=== PATIENT | male | born 1950 | race American Indian/Alaskan Native ===

== ENCOUNTER 2018-05-04 09:49 | Day surgery (SDC) | payer MEDICARE ==
[~2018-05-04 09:49] MED LIST: DILAUDID IV PRN; LACTATED RINGERS 1,000 ML IV SCH; VERSED IV NR; ZOFRAN IV PRN
[2018-05-04] MEDS ORDERED: ANCEF/STERILE WATER 2 GM/20 ML IV NR (11:00)
[2018-05-04] MEDS ORDERED: ROBINUL ONE (11:16)
[2018-05-04] MEDS ORDERED: ZOFRAN ONE ×2 (11:16→12:23)
[2018-05-04] MEDS ORDERED: DECADRON ONE (11:16)
[2018-05-04] MEDS ORDERED: DIPRIVAN 10 MG/ML IV ONE (11:16)
[2018-05-04] MEDS ORDERED: SUBLIMAZE ONE (11:16)
--- NOTE | 2018-05-04 12:28 | Post Operative Note ---
Date of procedure: 05/04/18 Pre-op diagnosis: renal stone Post-op diagnosis: same Findings: large stone Procedure: left renal litho eswl Anesthesia: GETA Surgeon: EDUARDO FERRARI Estimated blood loss: none Condition: stable Disposition: PACU
--- NOTE | 2018-05-04 12:30 | Discharge Summary ---
Short Stay Discharge Plan Activity: other (no straining ) Weight Bearing Status: Full Weight Bearing Diet: low fat, low cholesterol, low salt Special Instructions: other Follow up with: NISHA VANN MD [Primary Care Provider] - 7 Days EDUARDO FERRARI MD [Staff Physician] - 7 Days
--- NOTE | 2018-05-04 12:32 | Anesthesia Day of Surgery ---
Anesthesia Day of Surgery - Day of Surgery Patient Examined: Yes Patient H&P Reviewed: Yes Patient is NPO: Yes
--- NOTE | 2018-05-04 12:33 | Anesthesia Consultation ---
Anesthesia Consult and Med Hx Date of service: 05/04/18 - Airway Anesthetic Teeth Evaluation: Poor ROM Head & Neck: Adequate Mental/Hyoid Distance: Adequate Mallampati Class: Class III Intubation Access Assessment: Possibly Difficult - Pulmonary Exam CTA: Yes - Cardiac Exam Cardiac Exam: RRR - Pre-Operative Health Status ASA Pre-Surgery Classification: ASA3 Proposed Anesthetic Plan: General - Pulmonary Hx Smoking: Yes (STOPPED LATE TEENAGER) Hx Sleep Apnea: No (DEO PRE SCREEN HIGH RISK.) - Cardiovascular System Hx Hypertension: Yes (X 20 YRS) - Central Nervous System Hx Seizures: Yes (NO SEIZURES X 1 YR , OFF MEDS X 6 MONTHS) Hx Psychiatric Problems: No - Gastrointestinal Hx Ulcer: Yes - Hematic Hx Anemia: Yes - Other Systems Hx Cancer: No
--- NOTE | 2018-05-04 12:40 | Operative Report ---
PREOPERATIVE DIAGNOSIS: Large left renal stones, left flank pain POSTOPERATIVE DIAGNOSES: Large left renal stones, left flank pain. PROCEDURE: In situ lithotripsy. SURGEON: Akin Fall MD ANESTHESIA: General. FINDINGS: This is a gentleman with about a 1.5 cm renal pelvic stone, now presents for lithotripsy. All risks and implications discussed. He may require followup percutaneous cystoscopic procedures. DESCRIPTION OF PROCEDURE: The patient brought to the operating room and placed on the operating table. Following induction of anesthesia, placed on the table and the stone was well visualized. At this point, shocks were begun at 1 kV. Renal pause was carried out and shocks increased to 8 kV. A total of 2500 shocks were given. The patient tolerated the procedure well. No significant complication. The density of the stone decreased significantly. He may require stenting or percutaneous nephrostomy. He was brought to recovery in stable condition. JOB# [id number] [facility]
[2018-05-04] MEDS ORDERED: PERCOCET 5/325 PO PRN (13:10)
[2018-05-04 13:36] VITALS: BP 151/83
--- NOTE | 2018-05-04 16:05 | Post Anesthesia Evaluation ---
- Post Anesthesia Evaluation Patient Participated: Yes Airway Patent: Yes Stable Respiratory Function: Yes Nausea/Vomiting: No Temp > 96.8F: Yes Pain Manageable: Yes Adequeate Hydration: Yes Anesthesia Complications: No
== END 2018-05-04 14:20 | disposition home or self-care (01) ==
LOC: OR 09:49
PROVIDERS: ATTEND Urology
DX: N20.0 Calculus of kidney (principal); E78.00 Pure hypercholesterolemia, unspecified; I10 Essential (primary) hypertension; K21.9 Gastro-esophageal reflux disease without esophagitis; Z98.890 Other specified postprocedural states; Z80.8 Family history of malignant neoplasm of other organs or systems; Z83.3 Family history of diabetes mellitus; Z79.899 Other long term (current) drug therapy; Z79.82 Long term (current) use of aspirin; Z79.01 Long term (current) use of anticoagulants; Z79.84 Long term (current) use of oral hypoglycemic drugs; Z87.891 Personal history of nicotine dependence; Z79.4 Long term (current) use of insulin; Z86.2 Personal history of diseases of the blood and blood-forming organs and certain disorders involving the immune mechanism; Z82.49 Family history of ischemic heart disease and other diseases of the circulatory system
CPT/HCPCS: 50590; 82962; J0690; J1100; J2250; J2405; J2704; J3010; J7120